=== PATIENT | female | born 1930 | race Caucasian/White ===

== ENCOUNTER 2017-05-09 14:45 | Inpatient (IN) | payer OTHER ==
--- NOTE | 2017-05-09 16:43 | PDOC ---
History of Present Illness <Jessica Maloney - Last Filed: 05/09/17 18:02> - General History Source: Patient, Family Exam Limitations: Language Barrier - History of Present Illness Initial Comments: 05/09/17 16:42 Patient is an 87F with history of HTN, HLD, and hypothyroidism complaining of wound healing. She was fell and was cut on a chair on 02/14/17 in [place], where she received 50+ stitches for a wound. After three weeks, the stitches were removed at the hospital. The wound stitches did not hold together and the wound has been healing by secondary intention. The patient saw her primary care physician who sent her to the emergency department to be evaluated, with follow up already arranged for tomorrow. The patient endorses a small amount of yellow discharge. She denies fevers, chills, nausea, vomiting, redness and warmth around the wound. The leg hurts to walk on. She denies chest pain and palpitations. <Tremaine Delgado - Last Filed: 05/09/17 18:46> - General Chief Complaint: Wound Stated Complaint: LEG PAIN/ REOPENED WOUND (PCP SENT) Time Seen by Provider: 05/09/17 16:17 Past History <Jessica Maloney - Last Filed: 05/09/17 18:02> - Past Medical History Cardiac Disorders: Yes (ANGINA) HTN: Yes Hypercholesterolemia: Yes Thyroid Disease: Yes - Surgical History Appendectomy: Yes Cardiac Surgery: Yes (CATH, NEG) - Psycho/Social/Smoking Cessation Hx Anxiety: No Suicidal Ideation: No Smoking Status: Yes Smoking History: Never smoked Have you smoked in the past 12 months: No Number of Cigarettes Smoked Daily: 0 If you are a former smoker, when did you quit?: 20 yrs Information on smoking cessation initiated: No Hx Alcohol Use: No Drug/Substance Use Hx: No Substance Use Type: None <Tremaine Delgado - Last Filed: 05/09/17 18:46> - Past Medical History Allergies/Adverse Reactions: Allergies Allergy/AdvReac Type Severity Reaction Status Date / Time No Known Allergies Allergy Verified 05/09/17 15:13 Home Medications: Ambulatory Orders Carvedilol [Coreg -] 3.125 mg PO BID #28 tablet 06/03/13 Hydrochlorothiazide 25 mg PO DAILY #14 tablet 06/03/13 Levothyroxine [Synthroid -] 25 mcg PO DAILY #14 tablet 06/03/13 Lisinopril [Prinivil] 40 mg PO DAILY #14 tablet 06/03/13 Simvastatin [Zocor -] 40 mg PO HS #14 tablet 06/03/13 Amlodipine Besylate 5 mg PO DAILY 04/04/16 Calcium 600 mg PO DAILY 04/04/16 Nitrostat 0.4 mg PO [id number] PRN 04/04/16 Ranitidine 150 mg PO DAILY 04/04/16 Vitamin D 50,000 units PO WEEKLY 04/04/16 Review of Systems - Review of Systems Constitutional: No: Chills, Fever HEENTM: No: Recent change in vision Respiratory: Yes: Shortness of Breath (for past two days). No: SOB at Rest Cardiac (ROS): No: Chest Pain, Palpitations, Syncope ABD/GI: Yes: Constipated (last bowel movement 3 days ago). No: Diarrhea, Nausea , Vomiting, Tarry Stools : No: Dysuria Musculoskeletal: Yes: Back Pain (chronic) Integumentary: Yes: Bruising (bruise on left arm due to minor trauma) Neurological: Yes: Headache <Tremaine Delgado - Last Filed: 05/09/17 18:46> *Physical Exam - Vital Signs Last Vital Signs Temp Pulse Resp BP Pulse Ox 98.5 F 68 18 133/72 96 05/09/17 15:10 05/09/17 15:10 05/09/17 15:10 05/09/17 15:10 05/09/17 15:10 <Jessica Maloney - Last Filed: 05/09/17 18:02> - Vital Signs Last Vital Signs Temp Pulse Resp BP Pulse Ox 98.5 F 68 18 133/72 96 05/09/17 15:10 05/09/17 15:10 05/09/17 15:10 05/09/17 15:10 05/09/17 15:10 - Physical Exam Comments: 05/09/17 16:53 Gen: Well-appearing elderly woman, no acute distress Right lex4cm wound healing by secondary intention with small amount of yellow watery drainage. Erythematous, tender to touch, swollen. Left leg: Pitting edema on left leg to knee. Nontender. Cooler than right leg. CV: Regular rate and rhythm Lungs: Clear to auscultation bilaterally, normal work of breathing Abd: Soft, nontender, normal bowel sounds Neuro: Alert and oriented, no focal neuro deficits. <Tremaine Delgado - Last Filed: 05/09/17 18:46> ED Treatment Course - LABORATORY CBC & Chemistry Diagram: 05/09/17 16:58 - ADDITIONAL ORDERS Additional order review: 05/09/17 16:58 RBC 3.98 MCV 88.0 MCHC 32.1 RDW 16.3 H D MPV 8.8 Neutrophils % 54.9 Lymphocytes % 35.0 Monocytes % 8.7 Eosinophils % 0.8 Basophils % 0.6 - RADIOLOGY Radiology Studies Ordered: Category Date Time Status CHEST PA & LAT [RAD] Stat Radiology 05/09/17 17:05 Ordered LEG TIB/FIB-RIGHT [RAD] Stat Radiology 05/09/17 17:04 Ordered <Jessica Maloney - Last Filed: 05/09/17 18:02> - LABORATORY CBC & Chemistry Diagram: 05/09/17 16:58 05/09/17 16:58 <Tremaine Delgado - Last Filed: 05/09/17 18:46> Medical Decision Making - Medical Decision Making 05/09/17 17:08 87F with PMH of HTN, HLD, Hypothyroidism here with a complaint of a wound. Vital signs stable and normal. Wound appears infected with possible bone involvement. Will send ESR, CRP, CBC and CMP. Will also do x-ray of leg. 05/09/17 18:41 CBC shows no white count. CRP elevated to 0.6. <Tremaine Delgado - Last Filed: 05/09/17 18:46> *DC/Admit/Observation/Transfer <Jessica Maloney - Last Filed: 05/09/17 18:02> <Tremaine Delgado - Last Filed: 05/09/17 18:46> Diagnosis at time of Disposition: Cellulitis, Right leg swelling - Discharge Dispostion Condition at time of disposition: Guarded - Referrals Referrals: Julianne Angeles [Primary Care Provider] -
[2017-05-09] MEDS ORDERED: VANCOMYCIN 1,000 MG in DEXTROSE 5%-WATER - 250 ML IVPB ONE (17:04)
--- NOTE | 2017-05-09 17:09 | PDOC ---
Attending Attestation - Resident Resident Name: NamTremaine garg - HPI HPI: 05/09/17 17:06 PT HAS AN INFECTED OPEN WOUND ON HER RIGHT YEH THAT LOOKS WORSE; LEG IS HOT AND SWOLLEN COMPARED TO THE LEFT SIDE. SHE MAY HAVE OSTEOMYELITIS AND SHE WAS SENT FROM HER PMD KYLE REYES FOR ADMISSION - Physicial Exam PE: 05/09/17 17:07 RIGHT LEG HOT AND OPEN GRANULATING WOUND 3CM X 8 CM ON THE YEH. PT HAS PITTING EDEMA IN THE LL LEG OTHER TURCIOS EXAM ABOVE - Medical Decision Making 05/09/17 17:08 CELLULITIS; R/O OSTEO ADMIT TO THE HOSPITALIST
[2017-05-09 17:24] LABS: BASOPHIL 0.6 % (0-2.0); EOSINOPHIL 0.8 % (0-4.5); MCH 28.2 pg (25.7-33.7); MCHC 32.1 g/dl (32.0-36.0); MEAN PLT VOLUME 8.8 fl (7.5-11.1); NEUTROPHILS 54.9 % (42.8-82.8); PLATELET COUNT 258 K/MM3 (134-434); RDW 16.3 % (11.6-15.6); WHITE BLOOD COUNT 6.2 K/mm3 (4.0-10.0)
[2017-05-09] MEDS ORDERED: VANCOMYCIN 1 GRAM (PRE-DOCKED) 250 ML IVPB ONE (18:09)
[2017-05-09 18:59] LABS: CREATININE 0.8 mg/dL (0.55-1.02); GLUCOSE,RANDOM 79 mg/dL (74-106)
[2017-05-09 19:00] LABS: ALBUMIN 3.1 g/dl (3.4-5.0); ALK PHOS 76 U/L (45-117); ANION GAP 6 (8-16); BILIRUBIN,TOTAL 0.2 mg/dL (0.2-1.0); CALCIUM 8.5 mg/dL (8.5-10.1); CO2 32 mmol/L (21-32); SGOT/AST 24 U/L (15-37); SGPT/ALT 19 U/L (12-78); TOT PROT 6.9 g/dl (6.4-8.2)
--- NOTE | 2017-05-09 20:01 | HP ---
CHIEF COMPLAINT: Right leg swelling, redness, and discharge PCP: Not on Staff HISTORY OF PRESENT ILLNESS: This is a 87 y/o female who presents to the ED with a RLE wound with increased swelling, erythema, and yellow drainage worse today. Patient is Kyrgyz speaking , [employer] [facility] [employer] line used #[id number]. Patient reports the wound resulted from a fall back in January resulting in +50 sutures. Patient reports being on ABX for 1 month , but she could not recall the name and that the wound never healed. Patient reports seeing her PMD today and was sent in for admission for Cellulitis. Patient denies fever, chills, SOB, CP, AP, N/V/D, constipation, dysuria. ER course was notable for: (1) ESR 59 (2) CRP 0.6 (3) Xray R- Tib/Fib-no acute bony abnormalities are seen. No radiopaque foreign body is seen. No evidence of soft tissue emphysematous changes Recent Travel: None PAST MEDICAL HISTORY: HTN HLD Hypothyroid OA GERD PAST SURGICAL HISTORY: Right breast biopsy (pathology reported cyst) Appendectomy Social History: Smoking: Former Alcohol: Denies Drugs: Denies Lives in [place], resides with daughter when in [place] Family History: No known health conditions Allergies No Known Allergies Allergy (Verified 05/09/17 15:13) HOME MEDICATIONS: Home Medications Medication Instructions Recorded Unobtainable [Unobtainable] 05/09/17 REVIEW OF SYSTEMS CONSTITUTIONAL: Absent: fever, chills, diaphoresis, generalized weakness, malaise, loss of appetite, weight change HEENT: Absent: rhinorrhea, nasal congestion, throat pain, throat swelling, difficulty swallowing, mouth swelling, ear pain, eye pain, visual changes CARDIOVASCULAR: Absent: chest pain, syncope, palpitations, irregular heart rate, lightheadedness , peripheral edema RESPIRATORY: Absent: cough, shortness of breath, dyspnea with exertion, orthopnea, wheezing, stridor, hemoptysis GASTROINTESTINAL: Absent: abdominal pain, abdominal distension, nausea, vomiting, diarrhea, constipation, melena, hematochezia GENITOURINARY: Absent: dysuria, frequency, urgency, hesitancy, hematuria, flank pain, genital pain MUSCULOSKELETAL: joint swelling Absent: myalgia, arthralgia, back pain, neck pain SKIN: wound/abscess to RLE Absent: rash, itching, pallor HEMATOLOGIC/IMMUNOLOGIC: Absent: easy bleeding, easy bruising, lymphadenopathy, frequent infections ENDOCRINE: Absent: unexplained weight gain, unexplained weight loss, heat intolerance, cold intolerance NEUROLOGIC: Absent: headache, focal weakness or paresthesias, dizziness, unsteady gait, seizure, mental status changes, bladder or bowel incontinence PSYCHIATRIC: Absent: anxiety, depression, suicidal or homicidal ideation, hallucinations. PHYSICAL EXAMINATION Vital Signs - 24 hr 05/09/17 05/09/17 15:10 19:58 Temperature 98.5 F 98 F Pulse Rate 68 Pulse Rate [ 61 Apical] Respiratory 18 18 Rate Blood Pressure 133/72 Blood Pressure 150/77 [Left Arm] O2 Sat by Pulse 96 95 Oximetry (%) GENERAL: Obese, awake, alert, and fully oriented, in no acute distress. HEAD: Normal with no signs of trauma. EYES: Pupils equal, round and reactive to light, extraocular movements intact, sclera anicteric, conjunctiva clear. No lid lag. EARS, NOSE, THROAT: Ears normal, nares patent, oropharynx clear without exudates. Moist mucous membranes. NECK: Normal range of motion, supple without lymphadenopathy, JVD, or masses. LUNGS: Breath sounds equal, clear to auscultation bilaterally. No wheezes, and no crackles. No accessory muscle use. HEART: Regular rate and rhythm, normal S1 and S2 without murmur, rub or gallop. ABDOMEN: Soft, nontender, not distended, normoactive bowel sounds, no guarding, no rebound, no masses. No hepatomegaly or splenomegaly. MUSCULOSKELETAL: Normal range of motion at all joints. No bony deformities or tenderness. No CVA tenderness. UPPER EXTREMITIES: 2+ pulses, warm, well-perfused. No cyanosis. No clubbing. No peripheral edema. LOWER EXTREMITIES: 2+ pulses, warm, well-perfused. No left calf tenderness.+ Right calf tenderness + 2 R>L peripheral edema. NEUROLOGICAL: Cranial nerves II-XII intact. Normal speech. Gait not observed. PSYCHIATRIC: Cooperative. Good eye contact. Appropriate mood and affect. SKIN: Warm, dry, normal turgor, no rashes. normal capillary refill. + erythematous, large open wound with irregular borders, +yellow drainage noted to anterior RLE Laboratory Results - last 24 hr 05/09/17 05/09/17 05/09/17 16:51 16:51 16:58 WBC 6.2 RBC 3.98 Hgb 11.3 Hct 35.0 MCV 88.0 MCH 28.2 MCHC 32.1 RDW 16.3 H D Plt Count 258 D MPV 8.8 Neutrophils % 54.9 Lymphocytes % 35.0 Monocytes % 8.7 Eosinophils % 0.8 Basophils % 0.6 ESR 59 H Sodium Potassium Chloride Carbon Dioxide Anion Gap BUN Creatinine Creat Clearance w eGFR Random Glucose Calcium Total Bilirubin AST ALT Alkaline Phosphatase C-Reactive Protein 0.6 H Total Protein Albumin 05/09/17 16:58 WBC RBC Hgb Hct MCV MCH MCHC RDW Plt Count MPV Neutrophils % Lymphocytes % Monocytes % Eosinophils % Basophils % ESR Sodium 141 Potassium 4.3 Chloride 103 Carbon Dioxide 32 Anion Gap 6 L BUN 12 D Creatinine 0.8 Creat Clearance w eGFR > 60 Random Glucose 79 Calcium 8.5 Total Bilirubin 0.2 D AST 24 ALT 19 Alkaline Phosphatase 76 C-Reactive Protein Total Protein 6.9 Albumin 3.1 L ASSESSMENT/PLAN: This is a 87 y/o female with a PMHx of: HTN, HLD, Hypothyroid, Angina. Presents to the ED with increased redness, swelling and yellow drainage from a RLE wound. Admitted for Cellulitis/Abscess of RLE for further evaluation of their emergent condition. Problems: 1. Cellulitis/Abscess of R- lower extremity 2. HTN 3. HLD 4. Hypothyroid 5. Angina Plan: - Likely secondary to Failed Outpatient Therapy - Continue Vancomycin - Monitor trough - Appreciate ID Consult - Wound Care Nurse- dressing changes - Will do Doppler RLE r/o DVT - Wells Score 3 - Duplex RLE- neg DVT - Elevate extremity - Monitor CBC, BMP - Monitor vitals - Continue home meds- verified with patient's granddaughter through [employer] line #[id number] - TSH in am - EKG reviewed - DVT Prophylaxis- OOB, Heparin SQ - PPI Prophylaxis- continue ranitidine - Low Na Diet Code Status- Full Code Dispo: Requires Inpatient Care Problem List - Problem (1) Cellulitis Code(s): L03.90 - CELLULITIS, UNSPECIFIED (2) Right leg swelling Code(s): M79.89 - OTHER SPECIFIED SOFT TISSUE DISORDERS (3) Dyslipidemia Code(s): E78.5 - HYPERLIPIDEMIA, UNSPECIFIED (4) HTN (hypertension) Code(s): I10 - ESSENTIAL (PRIMARY) HYPERTENSION (5) Hypothyroid Code(s): E03.9 - HYPOTHYROIDISM, UNSPECIFIED (6) Cardiac angina Code(s): I20.9 - ANGINA PECTORIS, UNSPECIFIED (7) DVT prophylaxis Code(s): SKQ4441 - Visit type - Emergency Visit Emergency Visit: Yes ED Registration Date: 05/09/17 Care time: The patient presented to the Emergency Department on the above date and was hospitalized for further evaluation of their emergent condition. - New Patient This patient is new to me today: Yes Date on this admission: 05/09/17 - Critical Care Critical Care patient: No
[2017-05-09] MEDS ORDERED: OXYCODONE/APAP 5/325MG COMBO TABLET PO PRN (21:58)
[2017-05-09] MEDS ORDERED: ACETAMINOPHEN 325 MG TABLET (FP) PO PRN (22:14)
[2017-05-09] MEDS ORDERED: oxyCODONE HCL 5 MG TABLET PO PRN (22:14)
[2017-05-10 04:00] VITALS: BMI 34.0
[2017-05-10] MEDS ORDERED: VANCOMYCIN 1 GRAM (PRE-DOCKED) 1,000 MG/250 ML BAG IVPB ONE (06:00)
[2017-05-10] MEDS: LEVOTHYROXINE NA 25 MCG TABLET (FP) PO SCH (07:01)
[2017-05-10 07:41] LABS: BASOPHIL 0.4 % (0-2.0); MCH 28.9 pg (25.7-33.7); MCHC 32.9 g/dl (32.0-36.0); MEAN CELL VOLUME 87.8 fl (80-96); MEAN PLT VOLUME 8.7 fl (7.5-11.1); NEUTROPHILS 58.9 % (42.8-82.8); PLATELET COUNT 205 K/MM3 (134-434); RDW 16.9 % (11.6-15.6)
[2017-05-10 08:14] LABS: ANION GAP 9 (8-16); CALCIUM 8.2 mg/dL (8.5-10.1); CO2 31 mmol/L (21-32); CREATININE 0.6 mg/dL (0.55-1.02); GLUCOSE,RANDOM 84 mg/dL (74-106)
[2017-05-10] MEDS: CARVEDILOL 3.125 MG TABLET (FP) PO SCH ×2 (09:58→21:24)
[2017-05-10] MEDS: amLODIPine BESYLATE 5 MG TABLET (FP) PO SCH (09:59)
[2017-05-10] MEDS: HYDROCHLOROTHIAZIDE 25 MG TABLET (FP) PO SCH (09:59)
[2017-05-10] MEDS: HEPARIN NA (PORCINE) 5,000 UNITS/ML 1ML VIAL SQ SCH ×2 (09:59→21:25)
[2017-05-10] MEDS: LOSARTAN POTASSIUM 50 MG TABLET (FP) PO SCH (09:59)
[2017-05-10] MEDS: RANITIDINE HCL 150 MG TABLET (FP) PO SCH (09:59)
[2017-05-10] MEDS ORDERED: PNEUMOC 13-VAL CONJ-DIP CRM/PF 0.5 ML DISP.SYRIN IM ONE (10:00)
[2017-05-10] MEDS ORDERED: VANCOMYCIN 1,000 MG in DEXTROSE 5%-WATER - 250 ML IVPB SCH (10:00)
[2017-05-10] MEDS ORDERED: CARVEDILOL 3.125 MG TABLET (FP) PO SCH (10:00)
--- NOTE | 2017-05-10 10:41 | EKG ---
Test Reason : Blood Pressure : / mmHG Vent. Rate : 065 BPM Atrial Rate : 065 BPM P-R Int : 144 ms QRS Dur : 090 ms QT Int : 452 ms P-R-T Axes : 061 -43 030 degrees QTc Int : 470 ms POOR DATA QUALITY, INTERPRETATION MAY BE ADVERSELY AFFECTED NORMAL SINUS RHYTHM LEFT AXIS DEVIATION LOW VOLTAGE QRS RSR' OR QR PATTERN IN V1 SUGGESTS RIGHT VENTRICULAR CONDUCTION DELAY ABNORMAL ECG WHEN COMPARED WITH ECG OF 08-JAN-2016 11:14, NONSPECIFIC T WAVE ABNORMALITY HAS REPLACED INVERTED T WAVES IN LATERAL LEADS Confirmed by EZEKIEL DELANEY MD ([id number]) on 05/10/2017 10:41:35 AM Referred By: Confirmed By:EZEKIEL DELANEY MD
--- NOTE | 2017-05-10 11:52 | PN ---
Physical Exam: SUBJECTIVE: Patient seen and examined. Feels her pain has improved after initiation of antibiotics. OBJECTIVE: Vital Signs Period Temp Pulse Resp BP Sys/Hall Pulse Ox Last 24 Hr 98.2 F-98.2 F 58-66 14-18 137-158/55-72 90-96 GENERAL: The patient is awake, alert, and fully oriented, in no acute distress. HEAD: Normal with no signs of trauma. EYES: PERRL, extraocular movements intact, sclera anicteric, conjunctiva clear. No ptosis. ENT: Ears normal, nares patent, oropharynx clear without exudates, moist mucous membranes. NECK: Trachea midline, full range of motion, supple. LUNGS: Breath sounds equal, clear to auscultation bilaterally, no wheezes, no crackles, no accessory muscle use. HEART: Regular rate and rhythm, S1, S2 without murmur, rub or gallop. ABDOMEN: Soft, nontender, nondistended, normoactive bowel sounds, no guarding, no rebound, no hepatosplenomegaly, no masses. EXTREMITIES: Warm, well-perfused. Right DP/PT pulses 1+. NEUROLOGICAL: Cranial nerves II through XII grossly intact. Normal speech, gait not observed. PSYCH: Normal mood, normal affect. SKIN: Large, irregular wound over right tibia with granulation tissue and some mild surrounding erythema and pitting edema. Laboratory Results - last 24 hr 05/10/17 05/10/17 06:15 06:15 WBC 6.0 RBC 4.03 Hgb 11.6 Hct 35.4 MCV 87.8 MCH 28.9 MCHC 32.9 RDW 16.9 H Plt Count 205 D MPV 8.7 Neutrophils % 58.9 Lymphocytes % 29.8 Monocytes % 9.9 Eosinophils % 1.0 Basophils % 0.4 Sodium 143 Potassium 3.6 Chloride 103 Carbon Dioxide 31 Anion Gap 9 BUN 8 D Creatinine 0.6 D Random Glucose 84 Calcium 8.2 L Active Medications Generic Name Dose Route Start Last Admin Trade Name Freq PRN Reason Stop Dose Admin Acetaminophen 650 mg 05/09/17 22:14 Tylenol - PO Q6H PRN PAIN Amlodipine Besylate 5 mg 05/10/17 10:00 05/10/17 09:59 Norvasc - PO 5 mg DAILY JODI Administration Atorvastatin Calcium 20 mg 05/10/17 22:00 Lipitor - PO HS JODI Carvedilol 3.125 mg 05/10/17 10:00 05/10/17 09:58 Coreg - PO 3.125 mg BID JODI Administration Heparin Sodium (Porcine) 5,000 unit 05/10/17 10:00 05/10/17 09:59 Heparin - SQ 5,000 unit BID JODI Administration Hydrochlorothiazide 25 mg 05/10/17 10:00 05/10/17 09:59 Hctz - PO 25 mg DAILY JODI Administration Vancomycin HCl 1,000 mg/ 250 mls @ 200 mls/hr 05/10/17 10:00 Dextrose IVPB Q12H JODI Levothyroxine Sodium 25 mcg 05/10/17 07:00 05/10/17 07:01 Synthroid - PO 25 mcg DAILY@0700 JODI Administration Losartan Potassium 50 mg 05/10/17 10:00 05/10/17 09:59 Cozaar - PO 50 mg DAILY JODI Administration Oxycodone HCl 10 mg 05/09/17 22:14 Roxicodone - PO Q6H PRN PAIN LEVEL 6-10 Ranitidine HCl 150 mg 05/10/17 10:00 05/10/17 09:59 Zantac - PO 150 mg DAILY JODI Administration ASSESSMENT/PLAN: 87 year old female with non-healing right tibial wound s/p fall on 02/14; initially given 50+ sutures and antibiotics per her report. 1. Non-healing, ?infected wound -Failed out patient therapy, continue Vancomycin, add Cefazolin -Xray demonstrated no soft tissue air -MRI to r/o osteomyelitis -Wound care nurse, vascular consultation for further recommendations 2. HTN -BPs slightly above goal -Continue home Norvasc/Cozaar/HCTZ/Coreg and monitor 3. HLD -Continue Atorvastatin 4. Hypothyroidism -Continue Synthroid 5. CAD -No active issues 6. F/E/N -Sodium-controlled diet DISPO: Requires inpatient services. Visit type - Emergency Visit Emergency Visit: Yes ED Registration Date: 05/09/17 Care time: The patient presented to the Emergency Department on the above date and was hospitalized for further evaluation of their emergent condition. - New Patient This patient is new to me today: Yes Date on this admission: 05/14/17 - Critical Care Critical Care patient: No - Discharge Referral Referred to [facility] Med P.C.: No
[2017-05-10] MEDS ORDERED: CEFAZOLIN (PRE-DOCKED) 50 ML IVPB SCH (12:30)
--- NOTE | 2017-05-10 14:28 | CONSULT ---
Consult Consult Specialty:: infectious diseases Reason for Consultation:: non healing ulcer - History of Present Illness History of Present Illness: 87 y/o female whoadmitted with a RLE wound with increased swelling, erythema, and yellow drainage which has not been improving . Patient reports the wound resulted from a fall back in January resulting in multiple suthures with prolonged course of abx According to the aptient the wound never healed Send by her pmd for admission for cellulitits patient has no other complaints no other issues - History Source History Provided By: Patient, Medical Record Limitations to Obtaining History: Language Barrier - Alcohol/Substance Use Hx Alcohol Use: No History of Substance Use: reports: None - Smoking History Smoking history: Former smoker Have you smoked in the past 12 months: No Aproximately how many cigarettes per day: 40 If you are a former smoker, when did you quit?: 40 yrs - Social History History of Recent Travel: Yes (traveled from [place]) Home Medications - Allergies Allergies/Adverse Reactions: Allergies Allergy/AdvReac Type Severity Reaction Status Date / Time No Known Allergies Allergy Verified 05/09/17 15:13 - Home Medications Home Medications: Ambulatory Orders Unobtainable [Unobtainable] 05/09/17 Review of Systems - Review of Systems Constitutional: reports: No Symptoms Eyes: reports: No Symptoms HENT: reports: No Symptoms Neck: reports: No Symptoms Cardiovascular: reports: No Symptoms Respiratory: reports: No Symptoms Gastrointestinal: reports: No Symptoms Genitourinary: reports: No Symptoms Musculoskeletal: reports: Muscle Pain, Other Integumentary: reports: Wound Neurological: reports: No Symptoms Endocrine: reports: No Symptoms Hematology/Lymphatic: reports: No Symptoms Psychiatric: reports: No Symptoms Physical Exam Vital Signs: Vital Signs Temperature 98.2 F 05/10/17 05:00 Pulse Rate 64 05/10/17 05:00 Respiratory Rate 18 05/10/17 05:00 Blood Pressure 145/71 05/10/17 05:00 O2 Sat by Pulse Oximetry (%) 90 L 05/10/17 00:00 Constitutional: Yes: Well Nourished, No Distress, Calm Eyes: Yes: Conjunctiva Clear Neck: Yes: Supple Cardiovascular: Yes: Regular Rate and Rhythm Respiratory: Yes: Regular, CTA Bilaterally Gastrointestinal: Yes: Normal Bowel Sounds, Soft Musculoskeletal: Yes: Other Extremities: Yes: WNL Edema: LLE: 1+, RLE: 1+ Integumentary: Yes: Other (non healing ulcer on the rt lateral leg , large open wound with irregular borders, surrounding mild erythema,) Wound/Incision: Yes: Clean/Dry, Other Neurological: Yes: Alert Psychiatric: Yes: Alert Labs: CBC, BMP 05/10/17 06:15 05/10/17 06:15 Imaging - Results Chest X-ray: Report Reviewed, Image Reviewed X-ray: Report Reviewed, Image Reviewed Assessment/Plan 1. Cellulitis/Abscess of R- lower extremity 2. HTN 3. HLD 4. Hypothyroid 5. Angina plan changed abx to unasyn await for all cx report to be back
[2017-05-10] MEDS: AMPICILLIN NA/SULBACTAM NA 3 GM in SODIUM CHLORIDE 100 ML IVPB SCH (21:24)
[2017-05-10] MEDS: ATORVASTATIN CA 20 MG TABLET (FP) PO SCH (21:26)
[2017-05-11] MEDS: AMPICILLIN NA/SULBACTAM NA 3 GM in SODIUM CHLORIDE 100 ML IVPB SCH ×3 (01:51→17:29)
[2017-05-11] MEDS: LEVOTHYROXINE NA 25 MCG TABLET (FP) PO SCH (06:09)
[2017-05-11 06:58] LABS: BASOPHIL 0.3 % (0-2.0); EOSINOPHIL 1.4 % (0-4.5); MCH 28.7 pg (25.7-33.7); MCHC 32.9 g/dl (32.0-36.0); MEAN CELL VOLUME 87.3 fl (80-96); MEAN PLT VOLUME 8.8 fl (7.5-11.1); NEUTROPHILS 58.6 % (42.8-82.8); PLATELET COUNT 220 K/MM3 (134-434); RDW 16.6 % (11.6-15.6); WHITE BLOOD COUNT 5.9 K/mm3 (4.0-10.0)
[2017-05-11 07:09] LABS: ANION GAP 7 (8-16); CALCIUM 8.7 mg/dL (8.5-10.1); CO2 36 mmol/L (21-32); CREATININE 0.7 mg/dL (0.55-1.02); GLUCOSE,RANDOM 86 mg/dL (74-106)
[2017-05-11] MEDS ORDERED: PT OWN MED DRAWER 7, Y5N ONE ×3 (09:16→17:11)
[2017-05-11] MEDS: HYDROCHLOROTHIAZIDE 25 MG TABLET (FP) PO SCH (09:18)
[2017-05-11] MEDS: CARVEDILOL 3.125 MG TABLET (FP) PO SCH ×2 (09:18→22:12)
[2017-05-11] MEDS: HEPARIN NA (PORCINE) 5,000 UNITS/ML 1ML VIAL SQ SCH ×2 (09:18→22:13)
[2017-05-11] MEDS: RANITIDINE HCL 150 MG TABLET (FP) PO SCH (09:18)
[2017-05-11] MEDS: LOSARTAN POTASSIUM 50 MG TABLET (FP) PO SCH (09:19)
--- NOTE | 2017-05-11 09:34 | CONSULT ---
Consult - Alcohol/Substance Use Hx Alcohol Use: No History of Substance Use: reports: None - Smoking History Smoking history: Former smoker Have you smoked in the past 12 months: No Aproximately how many cigarettes per day: 40 If you are a former smoker, when did you quit?: 40 yrs - Social History History of Recent Travel: Yes (traveled from [place]) Home Medications - Allergies Allergies/Adverse Reactions: Allergies Allergy/AdvReac Type Severity Reaction Status Date / Time No Known Allergies Allergy Verified 05/09/17 15:13 - Home Medications Home Medications: Ambulatory Orders Unobtainable [Unobtainable] 05/09/17 Physical Exam Vital Signs: Vital Signs Temperature 98.7 F 05/11/17 06:00 Pulse Rate 70 05/11/17 06:00 Respiratory Rate 18 05/11/17 06:00 Blood Pressure 146/74 05/11/17 06:00 O2 Sat by Pulse Oximetry (%) 98 05/11/17 08:27 Labs: CBC, BMP 05/11/17 05:45 05/11/17 05:45 Assessment/Plan VAscular Surgery Patient is an 87F with history of HTN, HLD, and hypothyroidism complaining of wound healing. She was fell and was cut on a chair on 02/14/17 in [place], where she received 50+ stitches for a wound. After three weeks, the stitches were removed at the hospital. The wound stitches did not hold together and the wound has been healing by secondary intention. The patient saw her primary care physician who sent her to the emergency department to be evaluated, with follow up already arranged for tomorrow. The patient endorses a small amount of yellow discharge. She denies fevers, chills, nausea, vomiting, redness and warmth around the wound. The leg hurts to walk on. She denies chest pain and palpitations. <Tremaine Delgado - Last Filed: 05/09/17 18:46> - General Chief Complaint: Wound Stated Complaint: LEG PAIN/ REOPENED WOUND (PCP SENT) Time Seen by Provider: 05/09/17 16:17 Past History <Jessica Maloney - Last Filed: 05/09/17 18:02> - Past Medical History Cardiac Disorders: Yes (ANGINA) HTN: Yes Hypercholesterolemia: Yes Thyroid Disease: Yes - Surgical History Appendectomy: Yes Cardiac Surgery: Yes (CATH, NEG) - Psycho/Social/Smoking Cessation Hx Anxiety: No Suicidal Ideation: No Smoking Status: Yes Smoking History: Never smoked Have you smoked in the past 12 months: No Number of Cigarettes Smoked Daily: 0 If you are a former smoker, when did you quit?: 20 yrs Information on smoking cessation initiated: No Hx Alcohol Use: No Drug/Substance Use Hx: No Substance Use Type: None <Tremaine Delgado - Last Filed: 05/09/17 18:46> - Past Medical History Allergies/Adverse Reactions: Allergies Allergy/AdvReac Type Severity Reaction Status Date / Time No Known Allergies Allergy Verified 05/09/17 15:13 Home Medications: Ambulatory Orders Carvedilol [Coreg -] 3.125 mg PO BID #28 tablet 06/03/13 Hydrochlorothiazide 25 mg PO DAILY #14 tablet 06/03/13 Levothyroxine [Synthroid -] 25 mcg PO DAILY #14 tablet 06/03/13 Lisinopril [Prinivil] 40 mg PO DAILY #14 tablet 06/03/13 Simvastatin [Zocor -] 40 mg PO HS #14 tablet 06/03/13 Amlodipine Besylate 5 mg PO DAILY 04/04/16 Calcium 600 mg PO DAILY 04/04/16 Nitrostat 0.4 mg PO [id number] PRN 04/04/16 Ranitidine 150 mg PO DAILY 04/04/16 Vitamin D 50,000 units PO WEEKLY 04/04/16 PE Head - NC/AT Lung - CTA Heart - RRR abd - soft,nd,nt ext - Right wetzel wound. Clean , pink, granulation. Palpable DP pulse. A/P S/P trauma to right wetzel, now with wound open. 1. Santyl to wound daily with compression with mariah. 2. PLease have pt follow up in wound care clinic upon DC. please make pt a appt prior to dc -- [phone]. Leif Issa DO
[2017-05-11] MEDS: COLLAGENASE CLOSTRIDIUM HIST. 30 GRAMS TUBE TP SCH (11:00)
[2017-05-11] MEDS: amLODIPine BESYLATE 5 MG TABLET (FP) PO SCH (13:53)
--- NOTE | 2017-05-11 16:55 | PN ---
Progress Note, Physician History of Present Illness: improving wound looks better - Current Medication List Current Medications: Active Medications Acetaminophen (Tylenol -) 650 mg PO Q6H PRN PRN Reason: PAIN Amlodipine Besylate (Norvasc -) 5 mg PO DAILY [facility] Last Admin: 05/11/17 13:53 Dose: 5 mg Atorvastatin Calcium (Lipitor -) 20 mg PO HS [facility] Last Admin: 05/10/17 21:26 Dose: 20 mg Carvedilol (Coreg -) 3.125 mg PO BID [facility] Last Admin: 05/11/17 09:18 Dose: 3.125 mg Collagenase (Santyl -) 1 applic TP DAILY [facility] Last Admin: 05/11/17 11:00 Dose: 1 applic Heparin Sodium (Porcine) (Heparin -) 5,000 unit SQ BID [facility] Last Admin: 05/11/17 09:18 Dose: 5,000 unit Hydrochlorothiazide (Hctz -) 25 mg PO DAILY [facility] Last Admin: 05/11/17 09:18 Dose: 25 mg Ampicillin Sodium/Sulbactam (Sodium 3 gm/ Sodium Chloride) 100 mls @ 200 mls/ hr IVPB Q8H-IV [facility] Last Admin: 05/11/17 09:19 Dose: 200 mls/hr Levothyroxine Sodium (Synthroid -) 25 mcg PO DAILY@0700 [facility] Last Admin: 05/11/17 06:09 Dose: 25 mcg Losartan Potassium (Cozaar -) 50 mg PO DAILY [facility] Last Admin: 05/11/17 09:19 Dose: 50 mg Oxycodone HCl (Roxicodone -) 10 mg PO Q6H PRN PRN Reason: PAIN LEVEL 6-10 Ranitidine HCl (Zantac -) 150 mg PO DAILY [facility] Last Admin: 05/11/17 09:18 Dose: 150 mg - Objective Vital Signs: Vital Signs Temperature 97.9 F 05/11/17 14:39 Pulse Rate 64 05/11/17 14:39 Respiratory Rate 18 05/11/17 14:39 Blood Pressure 138/68 05/11/17 14:39 O2 Sat by Pulse Oximetry (%) 98 05/11/17 08:27 Constitutional: Yes: No Distress, Calm Cardiovascular: Yes: Regular Rate and Rhythm Respiratory: Yes: Regular, CTA Bilaterally Gastrointestinal: Yes: Normal Bowel Sounds, Soft Musculoskeletal: Yes: Other Extremities: Yes: Other Neurological: Yes: Alert, Oriented Psychiatric: Yes: Alert, Oriented Labs: CBC, BMP 05/11/17 05:45 05/11/17 05:45 Assessment/Plan 1. Cellulitis/Abscess of R- lower extremity 2. HTN 3. HLD 4. Hypothyroid 5. Angina plan continue abx vascular evaluated the patient
--- NOTE | 2017-05-11 17:15 | PN ---
Physical Exam: SUBJECTIVE: Patient seen and examined at bedside. OBJECTIVE: Vital Signs Period Temp Pulse Resp BP Sys/Hall Pulse Ox Last 24 Hr 97.9 F-98.7 F 59-70 16-20 118-146/55-88 98 GENERAL: The patient is awake, alert, and fully oriented, in no acute distress. HEAD: Normal with no signs of trauma. EYES: PERRL, extraocular movements intact, sclera anicteric, conjunctiva clear. No ptosis. ENT: Ears normal, nares patent, oropharynx clear without exudates, moist mucous membranes. NECK: Trachea midline, full range of motion, supple. LUNGS: Breath sounds equal, clear to auscultation bilaterally, no wheezes, no crackles, no accessory muscle use. HEART: Regular rate and rhythm, S1, S2 without murmur, rub or gallop. ABDOMEN: Soft, nontender, nondistended, normoactive bowel sounds, no guarding, no rebound, no hepatosplenomegaly, no masses. EXTREMITIES: Warm, well-perfused. Right DP/PT pulses 1+. NEUROLOGICAL: Cranial nerves II through XII grossly intact. Normal speech, gait not observed. PSYCH: Normal mood, normal affect. SKIN: Large, irregular wound over right tibia with slough Laboratory Results - last 24 hr 05/11/17 05/11/17 05:45 05:45 WBC 5.9 RBC 4.25 Hgb 12.2 Hct 37.1 MCV 87.3 MCH 28.7 MCHC 32.9 RDW 16.6 H Plt Count 220 MPV 8.8 Neutrophils % 58.6 Lymphocytes % 32.4 Monocytes % 7.3 Eosinophils % 1.4 Basophils % 0.3 Sodium 143 Potassium 3.8 Chloride 100 Carbon Dioxide 36 H Anion Gap 7 L BUN 9 Creatinine 0.7 Random Glucose 86 Calcium 8.7 Active Medications Generic Name Dose Route Start Last Admin Trade Name Freq PRN Reason Stop Dose Admin Acetaminophen 650 mg 05/09/17 22:14 Tylenol - PO Q6H PRN PAIN Amlodipine Besylate 5 mg 05/10/17 10:00 05/11/17 13:53 Norvasc - PO 5 mg DAILY JODI Administration Atorvastatin Calcium 20 mg 05/10/17 22:00 05/10/17 21:26 Lipitor - PO 20 mg HS JODI Administration Carvedilol 3.125 mg 05/10/17 10:00 05/11/17 09:18 Coreg - PO 3.125 mg BID JODI Administration Collagenase 1 applic 05/11/17 10:00 05/11/17 11:00 Santyl - TP 1 applic DAILY JODI Administration Heparin Sodium (Porcine) 5,000 unit 05/10/17 10:00 05/11/17 09:18 Heparin - SQ 5,000 unit BID JODI Administration Hydrochlorothiazide 25 mg 05/10/17 10:00 05/11/17 09:18 Hctz - PO 25 mg DAILY JODI Administration Ampicillin Sodium/Sulbactam 100 mls @ 200 mls/hr 05/10/17 18:00 05/11/17 09:19 Sodium 3 gm/ Sodium Chloride IVPB 200 mls/hr Q8H-IV JODI Administration Levothyroxine Sodium 25 mcg 05/10/17 07:00 05/11/17 06:09 Synthroid - PO 25 mcg DAILY@0700 JODI Administration Losartan Potassium 50 mg 05/10/17 10:00 05/11/17 09:19 Cozaar - PO 50 mg DAILY JODI Administration Oxycodone HCl 10 mg 05/09/17 22:14 Roxicodone - PO Q6H PRN PAIN LEVEL 6-10 Ranitidine HCl 150 mg 05/10/17 10:00 05/11/17 09:18 Zantac - PO 150 mg DAILY JODI Administration ASSESSMENT/PLAN 87 year old female with non-healing right tibial wound s/p fall on 02/14; initially given 50+ sutures and antibiotics per her report. 1. Non-healing RLE infected wound -slough in wound which indicates significant bioburden -continue unasyn -daily collagenase 2. HTN -BPs presently well-controlled -Continue home Norvasc/Cozaar/HCTZ/Coreg and monitor 3. HLD -Continue Atorvastatin 4. Hypothyroidism -Continue Synthroid 5. CAD -No active issues 6. F/E/N -Sodium-controlled diet DISPO: Requires inpatient services. Visit type - Emergency Visit Emergency Visit: Yes ED Registration Date: 05/09/17 Care time: The patient presented to the Emergency Department on the above date and was hospitalized for further evaluation of their emergent condition. - New Patient This patient is new to me today: Yes Date on this admission: 05/11/17 - Critical Care Critical Care patient: No
[2017-05-11] MEDS: ATORVASTATIN CA 20 MG TABLET (FP) PO SCH (22:12)
[2017-05-12] MEDS: AMPICILLIN NA/SULBACTAM NA 3 GM in SODIUM CHLORIDE 100 ML IVPB SCH ×3 (02:22→18:03)
[2017-05-12] MEDS: LEVOTHYROXINE NA 25 MCG TABLET (FP) PO SCH (06:57)
--- NOTE | 2017-05-12 08:34 | PN ---
Physical Exam: SUBJECTIVE: Patient seen and examined at bedside. Very little pain at wound site on left leg. OBJECTIVE: Vital Signs Period Temp Pulse Resp BP Sys/Hall Pulse Ox Last 24 Hr 97.9 F-98.5 F 56-68 16-18 118-138/58-88 GENERAL: The patient is awake, alert, and fully oriented, in no acute distress. HEAD: Normal with no signs of trauma. EYES: PERRL, extraocular movements intact, sclera anicteric, conjunctiva clear. No ptosis. ENT: Ears normal, nares patent, oropharynx clear without exudates, moist mucous membranes. NECK: Trachea midline, full range of motion, supple. LUNGS: Breath sounds equal, clear to auscultation bilaterally, no wheezes, no crackles, no accessory muscle use. HEART: Regular rate and rhythm, S1, S2 without murmur, rub or gallop. ABDOMEN: Soft, nontender, nondistended, normoactive bowel sounds, no guarding, no rebound, no hepatosplenomegaly, no masses. EXTREMITIES: Warm, well-perfused. Right DP/PT pulses 1+. NEUROLOGICAL: Cranial nerves II through XII grossly intact. Normal speech, gait not observed. PSYCH: Normal mood, normal affect. SKIN: Large, irregular wound over right tibia with slough Active Medications Generic Name Dose Route Start Last Admin Trade Name Freq PRN Reason Stop Dose Admin Acetaminophen 650 mg 05/09/17 22:14 05/11/17 18:15 Tylenol - PO 650 mg Q6H PRN Administration PAIN Amlodipine Besylate 5 mg 05/10/17 10:00 05/11/17 13:53 Norvasc - PO 5 mg DAILY JODI Administration Atorvastatin Calcium 20 mg 05/10/17 22:00 05/11/17 22:12 Lipitor - PO 20 mg HS JODI Administration Carvedilol 3.125 mg 05/10/17 10:00 05/11/17 22:12 Coreg - PO 3.125 mg BID JODI Administration Collagenase 1 applic 05/11/17 10:05/11/17 11:00 Santyl - TP 1 applic DAILY [facility]I Administration Heparin Sodium (Porcine) 5,000 unit 05/10/17 10:00 05/11/17 22:13 Heparin - SQ 5,000 unit BID JODI Administration Hydrochlorothiazide 25 mg 05/10/17 10:00 05/11/17 09:18 Hctz - PO 25 mg DAILY [facility]I Administration Ampicillin Sodium/Sulbactam 100 mls @ 200 mls/hr 05/10/17 18:00 05/12/17 02:22 Sodium 3 gm/ Sodium Chloride IVPB 200 mls/hr Q8H-IV J[facility]I Administration Levothyroxine Sodium 25 mcg 05/10/17 07:00 05/12/17 06:57 Synthroid - PO 25 mcg DAILY@0700 JODI Administration Losartan Potassium 50 mg 05/10/17 10:00 05/11/17 09:19 Cozaar - PO 50 mg DAILY [facility]I Administration Oxycodone HCl 10 mg 05/09/17 22:14 05/11/17 18:16 Roxicodone - PO 10 mg Q6H PRN Administration PAIN LEVEL 6-10 Ranitidine HCl 150 mg 05/10/17 10:00 05/11/17 09:18 Zantac - PO 150 mg DAILY [facility]I Administration ASSESSMENT/PLAN 87 year old female with non-healing right tibial wound s/p fall on 02/14; initially given 50+ sutures and antibiotics per her report. Non-healing RLE infected wound -slough in wound -continue unasyn (day #3) -daily collagenase; wrap wound with mariah compression -should follow up in wound care clinic on discharge Hypertension CAD -BP presently well-controlled -Continue home Norvasc/Cozaar/HCTZ/Coreg Hyperlipidemia -Continue Atorvastatin Hypothyroidism -Continue Synthroid F/E/N -Sodium-controlled diet DISPO: Requires inpatient services. Visit type - Emergency Visit Emergency Visit: Yes ED Registration Date: 05/09/17 Care time: The patient presented to the Emergency Department on the above date and was hospitalized for further evaluation of their emergent condition. - New Patient This patient is new to me today: No - Critical Care Critical Care patient: No
[2017-05-12] MEDS ORDERED: PT OWN MED DRAWER 7, Y5N ONE ×2 (09:23→17:56)
[2017-05-12] MEDS: RANITIDINE HCL 150 MG TABLET (FP) PO SCH (09:35)
[2017-05-12] MEDS: LOSARTAN POTASSIUM 50 MG TABLET (FP) PO SCH (09:35)
[2017-05-12] MEDS: CARVEDILOL 3.125 MG TABLET (FP) PO SCH ×2 (09:35→22:37)
[2017-05-12] MEDS: amLODIPine BESYLATE 5 MG TABLET (FP) PO SCH (09:35)
[2017-05-12] MEDS: HYDROCHLOROTHIAZIDE 25 MG TABLET (FP) PO SCH (09:35)
[2017-05-12] MEDS: HEPARIN NA (PORCINE) 5,000 UNITS/ML 1ML VIAL SQ SCH ×2 (09:36→22:37)
--- NOTE | 2017-05-12 15:33 | PN ---
Progress Note, Physician History of Present Illness: doing well no issues - Current Medication List Current Medications: Active Medications Acetaminophen (Tylenol -) 650 mg PO Q6H PRN PRN Reason: PAIN Last Admin: 05/11/17 18:15 Dose: 650 mg Amlodipine Besylate (Norvasc -) 5 mg PO DAILY [facility] Last Admin: 05/12/17 09:35 Dose: 5 mg Atorvastatin Calcium (Lipitor -) 20 mg PO HS [facility] Last Admin: 05/11/17 22:12 Dose: 20 mg Carvedilol (Coreg -) 3.125 mg PO BID [facility] Last Admin: 05/12/17 09:35 Dose: 3.125 mg Collagenase (Santyl -) 1 applic TP DAILY [facility] Last Admin: 05/11/17 11:00 Dose: 1 applic Heparin Sodium (Porcine) (Heparin -) 5,000 unit SQ BID [facility] Last Admin: 05/12/17 09:36 Dose: 5,000 unit Hydrochlorothiazide (Hctz -) 25 mg PO DAILY [facility] Last Admin: 05/12/17 09:35 Dose: 25 mg Ampicillin Sodium/Sulbactam (Sodium 3 gm/ Sodium Chloride) 100 mls @ 200 mls/ hr IVPB Q8H-IV [facility] Last Admin: 05/12/17 09:36 Dose: 200 mls/hr Levothyroxine Sodium (Synthroid -) 25 mcg PO DAILY@0700 [facility] Last Admin: 05/12/17 06:57 Dose: 25 mcg Losartan Potassium (Cozaar -) 50 mg PO DAILY [facility] Last Admin: 05/12/17 09:35 Dose: 50 mg Oxycodone HCl (Roxicodone -) 10 mg PO Q6H PRN PRN Reason: PAIN LEVEL 6-10 Last Admin: 05/11/17 18:16 Dose: 10 mg Ranitidine HCl (Zantac -) 150 mg PO DAILY [facility] Last Admin: 05/12/17 09:35 Dose: 150 mg - Objective Vital Signs: Vital Signs Temperature 98 F 05/12/17 14:36 Pulse Rate 56 L 05/12/17 14:36 Respiratory Rate 56 H 05/12/17 14:36 Blood Pressure 115/57 05/12/17 14:36 O2 Sat by Pulse Oximetry (%) 95 05/12/17 11:00 Constitutional: Yes: No Distress, Calm Cardiovascular: Yes: Regular Rate and Rhythm Respiratory: Yes: Regular, CTA Bilaterally Gastrointestinal: Yes: Normal Bowel Sounds, Soft Musculoskeletal: Yes: WNL Extremities: Yes: Other Wound/Incision: Yes: Dressing Dry and Intact Neurological: Yes: Alert, Oriented Psychiatric: Yes: Alert Labs: CBC, BMP 05/11/17 05:45 05/11/17 05:45 Assessment/Plan 1. Cellulitis/Abscess of R- lower extremity 2. HTN 3. HLD 4. Hypothyroid 5. Angina plan will change to oral tomorrow rest as per primary team
[2017-05-12] MEDS: COLLAGENASE CLOSTRIDIUM HIST. 30 GRAMS TUBE TP SCH (17:00)
[2017-05-12] MEDS ORDERED: DOCUSATE SODIUM 100 MG CAPSULE (FP) PO SCH (22:00)
[2017-05-12] MEDS: ATORVASTATIN CA 20 MG TABLET (FP) PO SCH (22:37)
[2017-05-12] MEDS: POLYETHYLENE GLYCOL 3350 119 GM BTL PO SCH (22:37)
[2017-05-13] MEDS: AMPICILLIN NA/SULBACTAM NA 3 GM in SODIUM CHLORIDE 100 ML IVPB SCH ×2 (01:41→09:37)
[2017-05-13] MEDS: LEVOTHYROXINE NA 25 MCG TABLET (FP) PO SCH (06:55)
[2017-05-13] MEDS ORDERED: PT OWN MED DRAWER 7, Y5N ONE (09:23)
[2017-05-13] MEDS: RANITIDINE HCL 150 MG TABLET (FP) PO SCH (09:40)
[2017-05-13] MEDS: amLODIPine BESYLATE 5 MG TABLET (FP) PO SCH (09:40)
[2017-05-13] MEDS: LOSARTAN POTASSIUM 50 MG TABLET (FP) PO SCH (09:41)
[2017-05-13] MEDS: HYDROCHLOROTHIAZIDE 25 MG TABLET (FP) PO SCH (09:41)
[2017-05-13] MEDS: CARVEDILOL 3.125 MG TABLET (FP) PO SCH (09:41)
[2017-05-13] MEDS: HEPARIN NA (PORCINE) 5,000 UNITS/ML 1ML VIAL SQ SCH (09:41)
[2017-05-13] MEDS: POLYETHYLENE GLYCOL 3350 119 GM BTL PO SCH (09:45)
--- NOTE | 2017-05-13 13:16 | PN ---
Progress Note, Physician History of Present Illness: stable doing well no new issues - Current Medication List Current Medications: Active Medications Acetaminophen (Tylenol -) 650 mg PO Q6H PRN PRN Reason: PAIN Last Admin: 05/11/17 18:15 Dose: 650 mg Amlodipine Besylate (Norvasc -) 5 mg PO DAILY [facility] Last Admin: 05/13/17 09:40 Dose: 5 mg Amoxicillin/Clavulanate Potassium (Augmentin - 500mg Tablet) 1 tab PO BID@0800, 1730 [facility] Atorvastatin Calcium (Lipitor -) [address] [facility] Last Admin: 05/12/17 22:37 Dose: 20 mg Carvedilol (Coreg -) 3.125 mg PO BID [facility] Last Admin: 05/13/17 09:41 Dose: 3.125 mg Collagenase (Santyl -) 1 applic TP DAILY [facility] Last Admin: 05/12/17 17:00 Dose: 1 applic Docusate Sodium (Colace -) [address] [facility] Last Admin: 05/12/17 22:37 Dose: 300 mg Heparin Sodium (Porcine) (Heparin -) 5,000 unit SQ BID [facility] Last Admin: 05/13/17 09:41 Dose: 5,000 unit Hydrochlorothiazide (Hctz -) 25 mg PO DAILY [facility] Last Admin: 05/13/17 09:41 Dose: 25 mg Levothyroxine Sodium (Synthroid -) 25 mcg PO DAILY@0700 [facility] Last Admin: 05/13/17 06:55 Dose: 25 mcg Losartan Potassium (Cozaar -) 50 mg PO DAILY [facility] Last Admin: 05/13/17 09:41 Dose: 50 mg Oxycodone HCl (Roxicodone -) 10 mg PO Q6H PRN PRN Reason: PAIN LEVEL 6-10 Last Admin: 05/11/17 18:16 Dose: 10 mg Polyethylene Glycol (Miralax (For Daily Use) -) 17 gm PO BID [facility] Last Admin: 05/13/17 09:45 Dose: 17 grams Ranitidine HCl (Zantac -) 150 mg PO DAILY [facility] Last Admin: 05/13/17 09:40 Dose: 150 mg - Objective Vital Signs: Vital Signs Temperature 98.3 F 05/13/17 06:00 Pulse Rate 64 05/13/17 10:00 Respiratory Rate 18 05/13/17 10:00 Blood Pressure 140/74 05/13/17 10:00 O2 Sat by Pulse Oximetry (%) 95 05/12/17 11:00 Constitutional: Yes: No Distress, Calm Cardiovascular: Yes: Regular Rate and Rhythm Respiratory: Yes: Regular, CTA Bilaterally Gastrointestinal: Yes: Normal Bowel Sounds, Soft Musculoskeletal: Yes: WNL Extremities: Yes: Other Wound/Incision: Yes: Dressing Dry and Intact Neurological: Yes: Alert, Oriented Psychiatric: Yes: Alert, Oriented Labs: CBC, BMP 05/11/17 05:45 05/11/17 05:45 Assessment/Plan 1. Cellulitis/Abscess of R- lower extremity 2. HTN 3. HLD 4. Hypothyroid 5. Angina plan changed to oral rest ct current mgmt
[2017-05-13] MEDS: COLLAGENASE CLOSTRIDIUM HIST. 30 GRAMS TUBE TP SCH (14:09)
[2017-05-13 14:57] VITALS: BP 130/64; PULSE 56; TEMP 98.2
--- NOTE | 2017-05-13 15:10 | DS ---
Physical Exam: SUBJECTIVE: Patient seen and examined. She feels well, she is walking w/o issue and wants to go home. she lives with her daughter OBJECTIVE: Vital Signs Period Temp Pulse Resp BP Sys/Hall Pulse Ox Last 24 Hr 98.2 F-98.3 F 56-64 18-20 130-144/55-74 94 PE Neuro: alert, awake, cn 2-12intact Pulm: CTAB CV: s1 s2 rrr Abd: s nt nd +bs Ext: warm, no le edema Skin: RLE wound lateral wetzel slough, non draining, granulation, pink HOSPITAL COURSE: Date of Admission:05/09/17 Date of Discharge: 05/13/17 Minutes to complete discharge: 36 Discharge Summary Reason For Visit: CELLULITIS Current Active Problems Cardiac angina (Acute) Cellulitis (Acute) DVT prophylaxis (Acute) Right leg swelling (Acute) Hospital Course: Initial Hospital Course: Briefly, this 87 year old female presented to the ED with a RLE wound with increased swelling, erythema, and yellow drainage. The wound resulted from a fall back in January resulting in +50 sutures. Patient reported being on ABX for 1 month, but she could not recall the name and the wound never healed. Patient reports seeing her PMD and was sent in for admission for Cellulitis. Subsequent Hospital Course/Progress Note/Discharge Summary by a/p: Assessment: 87 year old female with CAD, HTN, HLD, hypothyroidism, admitted with non-healing right tibial wound s/p fall on 02/14; initially given 50+ sutures and antibiotics per her report. Plan: 1. Non-healing RLE wound, cellulitis - MRI negative for osteo - Unasyn 3 days - Home augmentin 500mg BID x5 days - Daily collagenase; wrap wound with mariah compression - Wound care follow up on DC - VNS 2. Hypertension/ CAD - BP controlled - Continue home Norvasc 5mg/Cozaar 25mg qDay/HCTZ 25mg/Coreg 3.125 BID 3. Hyperlipidemia - Continue Atorvastatin 4. Hypothyroidism -Continue Synthroid 25mcg Plan: - Home with above meds - VNS and wound care follow up, referral enclosed Condition: Stable - Instructions Diet, Activity, Other Instructions: Please return to the ED for any new, persistent, or worsening symptoms. Follow up with your PCP in 1 week Make an appt with wound care center for next week and follow up regularly Complete antibiotics as directed Resume home medications as directed Referrals: Julianne Angeles [Primary Care Provider] - Leif Issa MD [Staff Physician] - Disposition: VNS/HOME HEALTH CARE - Home Medications Comprehensive Discharge Medication List: Ambulatory Orders Amlodipine Besylate [Norvasc -] 5 mg PO DAILY tablet 05/13/17 Amox-Tr/K Cl [Augmentin - 500Mg Tablet] 1 tab PO BID #10 tab 05/13/17 Atorvastatin Ca [Lipitor] 20 mg PO HS tablet 05/13/17 Carvedilol [Coreg -] 3.125 mg PO BID tablet 05/13/17 Collagenase Clostridium Hist. [Santyl -] 1 applic TP DAILY #1 tube 05/13/17 Hydrochlorothiazide 25 mg PO DAILY #30 tablet 05/13/17 Lactobacillus Acidophilus [Bacid -] 1 each PO DAILY #7 capsule 05/13/17 Levothyroxine [Synthroid -] 25 mcg PO DAILY@0700 tablet 05/13/17 Losartan Potassium [Cozaar -] 50 mg PO DAILY tablet 05/13/17 Ranitidine [Zantac -] 150 mg PO DAILY tablet 05/13/17 This patient is new to me today: Yes Date on this admission: 05/13/17 Emergency Visit: Yes ED Registration Date: 05/09/17 Care time: The patient presented to the Emergency Department on the above date and was hospitalized for further evaluation of their emergent condition. Critical Care patient: No - Discharge Referral Referred to [facility] Yes Physician Referral: Leif Issa DO ([facility])
[2017-05-13] MEDS ORDERED: AMOX TR/POT CLAV 500MG/125MG TABLETS (FP) PO SCH (17:30)
== END 2017-05-13 18:13 | disposition home health service (06) | DRG 721 ==
LOC: JER 14:45 → JERBED 20:19 → J5S 05-10 00:13
PROVIDERS: ADMIT Internal Medicine; ATTEND Nurse Practitioner Acute Care
DX: T81.4XXA Infection following a procedure, initial encounter (principal); Y83.8 Other surgical procedures as the cause of abnormal reaction of the patient, or of later complication, without mention of misadventure at the time of the procedure; L03.115 Cellulitis of right lower limb; I10 Essential (primary) hypertension; E78.5 Hyperlipidemia, unspecified; E03.9 Hypothyroidism, unspecified; L02.415 Cutaneous abscess of right lower limb; K21.9 Gastro-esophageal reflux disease without esophagitis; M19.90 Unspecified osteoarthritis, unspecified site; G89.29 Other chronic pain; M54.9 Dorsalgia, unspecified; K59.00 Constipation, unspecified; I25.119 Atherosclerotic heart disease of native coronary artery with unspecified angina pectoris; Z98.61 Coronary angioplasty status
CPT/HCPCS: 36415; 71020-TC; 73590-TC-RT; 73718-TC; 80048; 80053; 85025; 85651; 86140; 87070; 87205; 90670; 93005; 93010; 93971-TC; 99284-25; J1644

== ENCOUNTER 2017-11-28 06:15 | Day surgery (SDC) | payer OTHER ==
[2017-11-27 09:15] VITALS: BMI 33.7
[~2017-11-28 06:15] MED LIST: BUPIVACAINE HCL/PF 0.75% 10 ML VIAL RB ONE; LIDOCAINE HCL 1% PRESERVATIVE FREE - 30ML VIAL IO ONE; LIDOCAINE HCL/PF 2% SDV 5ML VIAL INF ONE; TETRACAINE 0.5% OPHTH SOLN 2 ML BOTTLE TP ONE; TOBRAMYCIN/DEXAMETHASONE OPHTH. OINTMENT 1 TUBE TP ONE; TROPICAMIDE 1% OPHTH SOLN 15 ML BOTTLE OP SCH
[2017-11-28] MEDS ORDERED: CYCLOPENTOLATE HCL 1% OPHTH SOLN 2 ML BOTTLE ONE (06:34)
[2017-11-28] MEDS ORDERED: PHENYLEPHRINE 2.5% OPHTH SOLN 15 ML BOTTLE ONE (06:34)
[2017-11-28] MEDS ORDERED: MOXIFLOXACIN HCL 0.5% OPHTHALMIC 3 ML BOTTLE ONE (06:34)
[2017-11-28] MEDS: PHENYLEPHRINE 2.5% OPHTH SOLN 15 ML BOTTLE OP SCH ×3 (06:45→07:10)
[2017-11-28] MEDS: TROPICAMIDE 1% OPHTH SOLN 15 ML BOTTLE ONE ×3 (06:45→07:10)
[2017-11-28] MEDS: MOXIFLOXACIN HCL 0.5% OPHTHALMIC 3 ML BOTTLE OP SCH ×3 (06:45→07:10)
[2017-11-28] MEDS: CYCLOPENTOLATE HCL 1% OPHTH SOLN 2 ML BOTTLE OP SCH ×3 (06:45→07:10)
[2017-11-28 07:05] VITALS: TEMP 98
[2017-11-28] MEDS ORDERED: EPINEPHrine/PF 1 MG/1 ML (1:1,000) AMPULE ONE (07:17)
[2017-11-28] MEDS ORDERED: TOBRAMYCIN/DEXAMETHASONE OPHTH. OINTMENT 1 TUBE ONE (07:17)
[2017-11-28] MEDS ORDERED: ACETYLCHOLINE 1:100 INTRA-OCUL 20 MG/2 ML KIT ONE (07:18)
[2017-11-28] MEDS ORDERED: BUPIVACAINE HCL/PF 0.75% 10 ML VIAL ONE (07:18)
[2017-11-28] MEDS ORDERED: LIDOCAINE HCL/PF 1% SDV 5ML VIAL ONE ×2 (07:18→07:21)
[2017-11-28] MEDS ORDERED: LIDOCAINE HCL/PF 2% SDV 5ML VIAL ONE (07:18)
[2017-11-28] MEDS ORDERED: TETRACAINE 0.5% OPHTH SOLN 2 ML BOTTLE ONE (07:19)
[2017-11-28] MEDS ORDERED: POVIDONE-IODINE 5% OPHTHALMIC PREP 30 ML SOLUTION ONE (07:19)
[2017-11-28] MEDS ORDERED: PROPOFOL 20 ML ONE ×3 (07:42)
[2017-11-28] MEDS ORDERED: SUCCINYLCHOLINE CHLORIDE 200 MG/10 ML VIAL ONE (07:42)
[2017-11-28] MEDS ORDERED: ePHEDrine SULFATE 50 MG/1 ML AMPULE ONE (07:42)
[2017-11-28] MEDS ORDERED: TETRACAINE 0.5% OPHTH SOLN 2 ML BOTTLE TP ONE (08:09)
[2017-11-28] MEDS ORDERED: BUPIVACAINE HCL/PF 0.75% 10 ML VIAL RB ONE (08:14)
[2017-11-28] MEDS ORDERED: LIDOCAINE HCL/PF 2% SDV 5ML VIAL INF ONE (08:14)
[2017-11-28] MEDS ORDERED: LIDOCAINE HCL 1% PRESERVATIVE FREE - 30ML VIAL IO ONE (08:23)
[2017-11-28] MEDS ORDERED: ONDANSETRON 4 MG/2 ML VIAL IVPUSH PRN (08:44)
[2017-11-28] MEDS ORDERED: ACETAMINOPHEN 325 MG TABLET (FP) PO PRN (08:44)
[2017-11-28] MEDS ORDERED: LACTATED RINGERS SOLUTION 1,000 ML IV SCH (08:45)
[2017-11-28] MEDS ORDERED: TOBRAMYCIN/DEXAMETHASONE OPHTH. OINTMENT 1 TUBE TP ONE (08:52)
--- NOTE | 2017-11-28 09:15 | HP ---
History & Physical Update - History History: No Change - Physical Physical: No Change - Assessment Assessment: No Change - Plan Plan: No Change
--- NOTE | 2017-11-28 11:20 | OP ---
DATE OF OPERATION: 11/28/2017 SURGEON: Maged Parnell MD PREOPERATIVE DIAGNOSIS: Cataract, left eye. OPERATION: Phacoemulsification and intraocular lens implantation, left eye. POSTOPERATIVE DIAGNOSIS: Cataract, left eye. ANESTHESIA: Local with intravenous sedation. COMPLICATIONS: None. BLOOD LOSS: None. SPECIMEN: None. BRIEF HISTORY: The patient is an 87-year-old woman with a past medical history of hypertension who presented with decreased vision in the left eye down to 20/50- 2 due to a 3+ nuclear sclerotic lens. After the risks, benefits, and alternatives to cataract surgery were discussed with the patient, she consented to surgery for the left eye. DESCRIPTION OF PROCEDURE: The patient was brought to the operating room and administered retrobulbar block after receiving intravenous sedation. She was then prepped and draped in the usual sterile fashion, and an eyelid speculum was inserted in the left eye. A paracentesis was made, and the anterior chamber was inflated with nonpreserved lidocaine. This was followed by injection of Viscoat. A groove was made in the supratemporal clear cornea, which was tunneled forward with a crescent blade. The anterior chamber was entered with a 2.75 keratome. The cystotome was used to make an incision in the center of the capsule, and a continuous curvilinear capsulorrhexis was created. At this point, it was noted that the pupil only dilated to about 4 to 4.5 mm, and it was determined to place iris hooks around the pupil in order to enlarge and stabilize it. Five iris hooks were placed without incident. The lens was then hydrodissected until it was found to rotate freely within the capsular bag. Phacoemulsification was then used to remove the lens in its entirety. Irrigation and aspiration was used to remove residual cortical material. The anterior chamber and capsular bag were reinflated with Provisc, and a 22.5 diopter [id number] AcrySof intraocular lens was injected into the capsular bag using [place] injector. The lens was dialed into place using a Sinskey hook. Irrigation and aspiration was used to remove residual viscoelastic. The wound was stromally hydrated until it was found to be watertight. The previously placed iris hooks were removed without incident. The wound was rechecked and found to be watertight, and the eye was at an appropriate pressure. The eyelid speculum was removed from the eye, and Tobradex ointment and a patch and shield were placed over the left eye. The patient was transferred to the recovery room in stable condition and will follow up tomorrow. MAGED PARNELL M.D. [id number] MTDD
[2017-11-28 11:35] VITALS: BP 145/73; PULSE 58
== END 2017-11-28 10:00 | disposition home or self-care (01) ==
LOC: JASU-SURG 06:15
PROVIDERS: ATTEND Ophthalmology
PROC: 08RK3JZ Replacement of Left Lens with Synthetic Substitute, Percutaneous Approach (ICD-10-PCS; principal; 2017-11-28 08:00)
DX: H25.012 Cortical age-related cataract, left eye (principal)

== ENCOUNTER 2018-01-16 07:32 | Day surgery (SDC) | payer OTHER ==
[2018-01-15 09:16] VITALS: BMI 34.7
[~2018-01-16 07:32] MED LIST changes: -BUPIVACAINE HCL/PF 0.75% 10 ML VIAL RB ONE; -LIDOCAINE HCL 1% PRESERVATIVE FREE - 30ML VIAL IO ONE; -LIDOCAINE HCL/PF 2% SDV 5ML VIAL INF ONE; -TETRACAINE 0.5% OPHTH SOLN 2 ML BOTTLE TP ONE; -TROPICAMIDE 1% OPHTH SOLN 15 ML BOTTLE OP SCH
[2018-01-16] MEDS ORDERED: CYCLOPENTOLATE HCL 1% OPHTH SOLN 2 ML BOTTLE ONE (08:26)
[2018-01-16] MEDS ORDERED: MOXIFLOXACIN HCL 0.5% OPHTHALMIC 3 ML BOTTLE ONE (08:26)
[2018-01-16] MEDS ORDERED: TROPICAMIDE 0.5% OPHTHALMIC SOLN 15 ML BOTTLE ONE (08:26)
[2018-01-16] MEDS ORDERED: PHENYLEPHRINE 2.5% OPHTH SOLN 15 ML BOTTLE ONE (08:26)
[2018-01-16] MEDS: TROPICAMIDE 1% OPHTH SOLN 15 ML BOTTLE OP SCH ×3 (08:35→08:55)
[2018-01-16] MEDS: MOXIFLOXACIN HCL 0.5% OPHTHALMIC 3 ML BOTTLE OP SCH ×3 (08:35→08:55)
[2018-01-16] MEDS: PHENYLEPHRINE 2.5% OPHTH SOLN 15 ML BOTTLE OP SCH ×3 (08:35→08:55)
[2018-01-16] MEDS: CYCLOPENTOLATE HCL 1% OPHTH SOLN 2 ML BOTTLE OP SCH ×3 (08:35→08:55)
[2018-01-16] MEDS ORDERED: EPINEPHrine/PF 1 MG/1 ML (1:1,000) AMPULE ONE (09:54)
[2018-01-16] MEDS ORDERED: BUPIVACAINE HCL/PF 0.75% 10 ML VIAL ONE (09:54)
--- NOTE | 2018-01-16 10:03 | HP ---
History & Physical Update - History History: No Change (See medical clearance in chart by FATOU Talamantes) - Physical Physical: No Change (See medical clearance in chart by FATOU Talamantes) - Assessment Assessment: No Change (See medical clearance in chart by FATOU Talamantes) - Plan Plan: No Change (See medical clearance in chart by FATOU Talamantes)
[2018-01-16] MEDS ORDERED: MIDAZOLAM HCL 2 MG/2 ML SINGLE DOSE VIAL ONE (10:13)
[2018-01-16] MEDS ORDERED: PROPOFOL 20 ML ONE (10:17)
[2018-01-16] MEDS ORDERED: TETRACAINE 0.5% OPHTH SOLN 2 ML BOTTLE TP ONE (10:22)
[2018-01-16] MEDS ORDERED: LIDOCAINE HCL/PF 2% SDV 5ML VIAL PNB ONE (10:26)
[2018-01-16] MEDS ORDERED: BUPIVACAINE HCL/PF 0.75% 10 ML VIAL RB ONE (10:26)
[2018-01-16] MEDS ORDERED: LIDOCAINE HCL 1% PRESERVATIVE FREE - 30ML VIAL IO ONE (10:38)
[2018-01-16] MEDS ORDERED: ACETYLCHOLINE 1:100 INTRA-OCUL 20 MG/2 ML KIT IO ONE (11:05)
[2018-01-16] MEDS ORDERED: ACETYLCHOLINE 1:100 INTRA-OCUL 20 MG/2 ML KIT ONE (11:07)
[2018-01-16] MEDS ORDERED: TOBRAMYCIN/DEXAMETHASONE OPHTH. OINTMENT 1 TUBE TP ONE (11:14)
[2018-01-16 13:08] VITALS: BP 122/70; PULSE 70; TEMP 98
--- NOTE | 2018-01-16 14:33 | OP ---
DATE OF OPERATION: 01/16/2018 SURGEON: ARIEL PARNELL M.D. PREOPERATIVE DIAGNOSIS: Cataract, right eye. POSTOPERATIVE DIAGNOSIS: Cataract, right eye. OPERATION: Phacoemulsification intraocular lens implantation, right eye. ANESTHESIA: Local with intravenous sedation. COMPLICATIONS: None. BLOOD LOSS: None. SPECIMEN: None. BRIEF HISTORY: The patient is an 87-year-old woman with a past medical history of hypertension who presents with decreased vision in the right eye down to 20/50 minus due to a 3+ nuclear sclerotic lens with vacuoles. After the risks, benefits and alternatives to cataract surgery were discussed with the patient, she consented to surgery for the right eye. DESCRIPTION OF PROCEDURE: Patient was brought to the operating room and administered retrobulbar block after receiving intravenous sedation. She was then prepped and draped in the usual sterile fashion. An eyelid speculum was inserted in the right eye. A paracentesis was made and the anterior chamber was inflated with non-preserved lidocaine. This was followed by injection of Viscoat. A groove was made in the temporal clear cornea, which was tunneled forward with the crescent blade. The anterior chamber was entered with the 2.75 keratome. The cystotome was used to make an incision in the center of the capsule and a continuous curvilinear capsulorrhexis was created. Hydrodissection was started; however, there was significant constriction of the pupil and iris prolapse. Four iris hooks were placed in order to enlarge and stabilize the pupil. Hydrodissection was continued until the lens was found to rotate freely within the capsular bag. Phacoemulsification was then used to remove the lens in its entirety. Irrigation and aspiration was used to remove residual cortical material. The anterior chamber and capsular bag were reinflated with Provisc and a 23.0 diopter [id number] AcrySof intraocular lens was injected into the capsular bag using the [place] injector. The lens was dialed into place using the Sinskey hook. Irrigation and aspiration was used to remove residual Viscoelastic. The wound was stromally hydrated; however, there was noted to be significant iris prolapse. Miochol was injected into the pupil and was found to constrict round. However, there were still strands of iris at the wound. One 10-0 nylon suture was placed at the wound and Miochol was reinjected. The pupil was found to constrict round with no iris prolapsing out of the wound. The wound was found to be water tight and the eye was at appropriate pressure. The eyelid speculum was removed from the eye and Tobradex ointment and a patch and shield were placed over the right eye. The patient was transferred to the recovery room in stable condition and will follow up tomorrow. Azeb [id number] MTDD
== END 2018-01-16 11:30 | disposition home or self-care (01) ==
LOC: JASU-SURG 07:32
PROVIDERS: ATTEND Ophthalmology
PROC: 08RJ3JZ Replacement of Right Lens with Synthetic Substitute, Percutaneous Approach (ICD-10-PCS; principal; 2018-01-16 10:00)
DX: H25.11 Age-related nuclear cataract, right eye (principal); H21.89 Other specified disorders of iris and ciliary body

== ENCOUNTER 2020-05-28 13:10 | Emergency (ER) | payer OTHER ==
[2020-05-28 13:27] VITALS: BMI 29.2
--- NOTE | 2020-05-28 13:27 | PDOC ---
Rapid Medical Evaluation Time Seen by Provider: 05/28/20 13:20 Medical Evaluation: Allergies Allergy/AdvReac Type Severity Reaction Status Date / Time No Known Allergies Allergy Verified 11/28/17 07:12 05/28/20 13:20 I have preformed a brief in person evaluation of the patient 89 year old female pmhx HTN, hx of AL, Hypothyroid, RA, Osteoporosis presenting with CP x 3 days with associated SOB and exertion. PE: RRR CTA ACS R/O CXR EKG in triage shows RBB Pt to precede to ED for further management and care
--- NOTE | 2020-05-28 15:00 | PDOC ---
History of Present Illness - General Chief Complaint: Chest Pain Stated Complaint: CHEST PAIN Time Seen by Provider: 05/28/20 13:20 - History of Present Illness Initial Comments: Pt is an 89yo F with PMH HTN, hypothyroid, RA, osteoarthritis, and hx of TIA, who presents with CP. Pts granddaughter is in the room to assist with tr anslating since patient is azeri speaking. Reports 3 day history of constant CP that is substernal, pleuritic, 7/10, a/w exertional SOB, weakness, and headache. States that she took a nitroglycerin today that has improved her symptoms, but denies any other relieving factors. States that pain is worse with eating. Reports loss of appetite. Reports chronic pain in shoulders, lower back, and legsDenies f/c, n/v, palpitations, lightheadedness. Denies sick contacts, recent travel, immobilization, history of cancer. PCP: [place] Client Manager [employer]: Jeniffer PMH: see HPI PSHx: none reported All: NKDA Social: denies tobacco use, etoh use, and illicit drug use Past History - Medical History Allergies/Adverse Reactions: Allergies Allergy/AdvReac Type Severity Reaction Status Date / Time No Known Allergies Allergy Verified 05/28/20 13:25 Home Medications: Ambulatory Orders Amlodipine Besylate [Norvasc -] 5 mg PO DAILY tablet 05/13/17 Carvedilol [Coreg -] 3.125 mg PO BID tablet 05/13/17 Hydrochlorothiazide 25 mg PO DAILY #30 tablet 05/13/17 Lactobacillus Acidophilus [Bacid -] 1 each PO DAILY #7 capsule 05/13/17 Levothyroxine [Synthroid -] 25 mcg PO DAILY@0700 tablet 05/13/17 Alendronate Na [Fosamax (Weekly)] 70 mg PO Q7D 01/16/18 Meloxicam [Mobic] 15 mg PO DAILY #30 tablet 10/21/19 Anemia: No Asthma: Yes (DENIES) Cancer: No Cardiac Disorders: Yes (ANGINA CAD) CVA: Yes (06/2019) COPD: No CHF: No Dementia: No Diabetes: No GI Disorders: No Disorders: No HTN: Yes (DENIES) Hypercholesterolemia: Yes Liver Disease: No Seizures: No Thyroid Disease: Yes - Surgical History Appendectomy: Yes Cardiac Surgery: Yes (CATH, NEG) Cholecystectomy: No Orthopedic Surgery: No - Psycho-Social/Smoking History Smoking Status: Yes Smoking History: Never smoked Have you smoked in the past 12 months: No Number of Cigarettes Smoked Daily: 40 If you are a former smoker, when did you quit?: 40 yrs - Substance Abuse Hx (Audit-C & DAST Scrn) How often the patient has a drink containing alcohol: Never Score: In Men: 4 or > Positive; In Women: 3 or > Positive: 0 Screen Result (Pos requires Nsg. Audit-10AR): Negative Review of Systems - Review of Systems Comments:: CONSTITUTIONAL:reports generalized weakness, loss of appetite; denies fever, chills, diaphoresis, malaise HEENT:denies rhinorrhea, nasal congestion, sore throat, ear pain, eye pain, visual Changes CARDIOVASCULAR:reports chest pain, denies palpitations, lightheadedness RESPIRATORY:reports cough, shortness of breath, dyspnea with exertion; denies orthopnea, wheezing, hemoptysis GASTROINTESTINAL: denies abdominal pain, nausea, vomiting, diarrhea, constipation, melena, hematochezia GENITOURINARY:denies dysuria, frequency, urgency, hematuria, flank pain, genital pain MUSCULOSKELETAL:denies myalgia, arthralgia, joint swelling, neck pain, back pain HEMATOLOGIC/IMMUNOLOGIC:denies easy bleeding, easy bruising ENDOCRINE: denies unexplained weight gain, unexplained weight loss NEUROLOGIC:reports dizziness, headaches, denies loss of consciousness, focal weakness or paresthesias, unsteady gait, mental status changes, bladder or bowel incontinence *Physical Exam - Vital Signs Last Vital Signs Temp Pulse Resp BP Pulse Ox 74 18 142/49 L 97 05/28/20 13:25 05/28/20 13:25 05/28/20 13:25 05/28/20 13:25 - Physical Exam General: awake, alert, oriented, in no acute distress, well developed, well nourished Head: normocephalic, atraumatic Eyes: PERRL, EOMI, anicteric sclera, conjunctiva clear ENT: hearing grossly normal, oropharynx clear without exudates. No nasal congestion Moist mucous membranes Neck: supple, normal ROM, no LAD, JVD or masses Lung: equal breath sounds b/l, CTA b/l, no crackles, wheezes; no distress, speaks full sentences Heart: RRR, normal S1, S2, no murmurs, rubs, gallops Abdomen: soft, non tender, normoactive bowel sounds, no guarding, rebound, mas ses Extremities: no edema, no erythema or tenderness, DP/PT pulses 2+ and symmetric, no clubbing, cyanosis Neuro: CN2-12 grossly intact, moves all extremities, normal speech, normal gait, sensation intact Skin: warm, dry, scar to RLE from prior fall ED Treatment Course - LABORATORY CBC & Chemistry Diagram: 05/28/20 14:50 05/28/20 14:50 Medical Decision Making - Medical Decision Making Pt is a 89yo with PMH HTN, hx of TIA, RA, osteoporosis who presents with chest pain Vital Signs Period Temp Pulse Resp BP Sys/Hall Pulse Ox Last 24 Hr 74 18 142/49 97-98 DDx: ACS, GERD, musculoskeletal pain, PE Plan: labs, EKG, CXR Laboratory Tests 05/28/20 05/28/20 05/28/20 14:50 14:50 14:50 WBC 5.8 RBC 4.27 Hgb 11.6 Hct 37.3 MCV 87.2 MCH 27.1 MCHC 31.1 L RDW 18.2 H Plt Count 204 MPV 8.8 Absolute Neuts (auto) 2.9 Neutrophils % 51.2 Lymphocytes % 37.9 Monocytes % 9.4 Eosinophils % 1.0 Basophils % 0.5 Nucleated RBC % 0 PT with INR 12.00 INR 1.02 PTT (Actin FS) 32.4 Sodium 140 Potassium 4.2 Chloride 101 Carbon Dioxide 32 Anion Gap 7 L BUN 8.0 Creatinine 0.8 Est GFR (CKD-EPI)AfAm 76.29 Est GFR (CKD-EPI)NonAf 65.82 Random Glucose 86 Calcium 8.1 L Total Bilirubin 0.4 AST 16 ALT 18 Alkaline Phosphatase 106 Creatine Kinase 80 Troponin I < 0.02 B-Natriuretic Peptide 106.9 Total Protein 6.7 Albumin 3.1 L EKG: HR 73ms, normal sinus rhythm, AZ 142 ms, QRS 92ms. QTc 471ms, left axis deviation, incomplete RBBB, T inversions in V1-V6 as seen in previous EKGs Spoke with Dr. Kelly, who recommended a repeat second troponin. If second troponin continues to be negative, he recommended that patient can be discharged home with outpatient follow up. Patient had normal echo and stress test last year. Signed out to Dr. Boo Disposition Discharge to home Discharge - Discharge Information Problems reviewed: Yes Clinical Impression/Diagnosis: Chest pain Qualifiers: Chest pain type: unspecified Qualified Code(s): R07.9 - Chest pain, unspecified Condition: Stable Disposition: HOME - Follow up/Referral Referrals: Emma Khoury MD [Primary Care Provider] - Lindsey Lorenzana MD [Nurse Practitioner] - Marco Mar MD [Staff Physician] - - Patient Discharge Instructions Patient Printed Discharge Instructions: DI for Chest Pain Additional Instructions: You came into the ER chest pain. In the ED, you were evaluated with physical exam and labs. Your results were normal. You do not appear to be an acute need for immediate hospitalization. You were advised to follow up with your international marketing specialist. Please call his office tomorrow to schedule an appointment. Come back to the ER immediately with any new or worsening concerns, such as exertional chest pain, changes in quality of pain, shortness of breath, headache, change in vision. Thank you for coming to the [facility] ER. We hope you feel better soon! Llegaste a la erik de emergencias con dolor en el pecho. En el servicio de urgencias, lo evaluaron con un examen fsico y laboratorios. Tus resultados fueron normales. No parece ser aram necesidad aguda de hospitalizacin inmediata. Se le aconsej que hiciera un seguimiento con song cardilogo. Por favor llame a song oficina maana para programar aram farzaneh. Regrese a la erik de emergencias de inmediato con cualquier inquietud nueva o que empeore, charla dolor torcico por esfuerzo, cambios en la calidad del dolor, dificultad para respirar, dolor de davis, cambios en la visin. Janette por venir a la erik de emergencias de [place]. Esperamos que te sientas mejor pronto! Print Language: AFGHAN - Post Discharge Activity
[2020-05-28 15:02] LABS: BASO % 0.5 % (0-2.0); HEMATOCRIT 37.3 % (32.4-45.2); HEMOGLOBIN 11.6 GM/dL (10.7-15.3); LYMPH % 37.9 % (8-40); MCH 27.1 pg (25.7-33.7); MCHC 31.1 g/dl (32.0-36.0); MEAN CELL VOLUME 87.2 fl (80-96); MEAN PLT VOLUME 8.8 fl (7.5-11.1); MONO % 9.4 % (3.8-10.2); NEUT % 51.2 % (42.8-82.8); PLATELET COUNT 204 K/MM3 (134-434); RBC 4.27 M/mm3 (3.60-5.2); RDW 18.2 % (11.6-15.6); WHITE BLOOD COUNT 5.8 K/mm3 (4.0-10.0)
[2020-05-28 15:10] LABS: INR 1.02 (0.83-1.09)
[2020-05-28 15:12] LABS: ACTIVATED PTT 32.4 SECONDS (25.2-36.5)
[2020-05-28 15:39] LABS: ALBUMIN 3.1 g/dl (3.4-5.0); ALK PHOS 106 U/L (45-117); ANION GAP 7 MMOL/L (8-16); BILIRUBIN,TOTAL 0.4 mg/dL (0.2-1); CALCIUM 8.1 mg/dL (8.5-10.1); CHLORIDE 101 mmol/L (98-107); CO2 32 mmol/L (21-32); CREATININE 0.8 mg/dL (0.55-1.3); N-TERMINAL BNP 106.9 pg/ml (5-450); POTASSIUM 4.2 mmol/L (3.5-5.1); SGOT/AST 16 U/L (15-37); SGPT/ALT 18 U/L (13-61); SODIUM 140 mmol/L (136-145); TOT PROT 6.7 g/dl (6.4-8.2)
[2020-05-28 15:43] LABS: GLUCOSE,RANDOM 86 mg/dL (74-106)
--- NOTE | 2020-05-28 17:09 | PDOC ---
Documentation entered by Tal Epps SCRIBE, acting as scribe for Alfonso Masterson MD. Alfonso Masterson MD: This documentation has been prepared by the scribe, Tal Epps SCRIBE, under my direction and personally reviewed by me in its entirety. I confirm that the documentation accurately reflects all work, treatment, procedures, and medical decision making performed by me. Attending Attestation - Resident Resident Name: Marcy Batista - ED Attending Attestation I have performed the following: I have examined & evaluated the patient, The case was reviewed & discussed with the resident, I agree w/resident's findings & plan, Exceptions are as noted - HPI HPI: 05/28/20 16:21 The patient is an 89 year old female with a significant past medical history of chronic pain in her shoulders, lower back, and legs, TIA, HTN, hypothyroid, RA, and osteoarthritis who presents to the ED with chest pain that began 3 days ago. Pt also endorses occasional sob. She describes this pain as 7/10 which is associated with headache and malaise/fatigue. She also noted decreased appetite secondary to worsened pain with eating. The patient denies fever, chills, nausea, vomiting and/or any GI symptoms. Denies any symptoms. Denies any other symptoms. Allergies: NKDA PCP: Dr. Khoury - Physicial Exam PE: 05/28/20 15:35 GENERAL: The patient is awake, alert, and fully oriented, Nontoxic - in no acute distress. HEAD: Normocephalic, atraumatic. EYES: extraocular movements intact, sclera anicteric, conjunctiva clear. ENT: Normal voice, Moist mucous membranes. NECK: Normal range of motion, supple without lymphadenopathy, JVD, or masses. LUNGS: Breath sounds equal, clear to auscultation bilaterally. No wheezes, no crackles, no rales. HEART: Regular rate and rhythm, normal S1 and S2 without murmur, rub or gallop. ABDOMEN: Soft, nontender, normoactive bowel sounds. No guarding, no rebound. No masses. EXTREMITIES: Normal range of motion, no edema. NEUROLOGICAL: No facial asymmetry, Normal speech, movnig all 4 ext spontaneously and symmetrically PSYCH: Normal mood, normal affect. SKIN: Warm, Dry, normal turgor, no rashes or lesions noted. - Medical Decision Making 05/28/20 19:15 1st trop neg had discussed possible observation for cp workup however pt requests to go home case dw dr. schaefer - will get 2nd trop and have close out patient fu with strict return precautions case signed out to evening team to fu with results and dispo pt Discharge - Discharge Information Problems reviewed: Yes Clinical Impression/Diagnosis: Chest pain Qualifiers: Chest pain type: unspecified Qualified Code(s): R07.9 - Chest pain, unspecified Condition: Stable Disposition: HOME - Follow up/Referral Referrals: Marco Mar MD [Staff Physician] - Emma Khoury MD [Primary Care Provider] - Lindsey Lorenzana MD [Nurse Practitioner] - - Patient Discharge Instructions Patient Printed Discharge Instructions: DI for Chest Pain Additional Instructions: You came into the ER chest pain. In the ED, you were evaluated with physical exam and labs. Your results were normal. You do not appear to be an acute need for immediate hospitalization. You were advised to follow up with your laboratory mechanic helper. Please call his office tomorrow to schedule an appointment. Come back to the ER immediately with any new or worsening concerns, such as exertional chest pain, changes in quality of pain, shortness of breath, headache, change in vision. Thank you for coming to the [facility] ER. We hope you feel better soon! Llegaste a la erik de emergencias con dolor en el [facility]. En el servicio de urgencias, lo evaluaron con un examen fsico y laboratorios. Tus resultados fueron normales. No parece ser aram necesidad aguda de hospitalizacin inmediata. Se le aconsej que hiciera un seguimiento con song cardilogo. Por favor llame a song oficina maana para programar aram farzaneh. Regrese a la erik de emergencias de inmediato con cualquier inquietud nueva o que empeore, charla dolor torcico por esfuerzo, cambios en la calidad del dolor, dificultad para respirar, dolor de davis, cambios en la visin. Janette por venir a la erik de emergencias de [place]. Esperamos que te sientas mejor pronto! Print Language: CUBAN - Post Discharge Activity
--- NOTE | 2020-05-28 19:27 | CON.CARD ---
Consult Consult Specialty:: cardiology Reason for Consultation:: chest pain - History Source History Provided By: Medical Record - Alcohol/Substance Use Hx Alcohol Use: No History of Substance Use: reports: None - Smoking History Smoking history: Never smoked Have you smoked in the past 12 months: No Aproximately how many cigarettes per day: 40 If you are a former smoker, when did you quit?: 40 yrs - Social History History of Recent Travel: Yes (traveled from [place]) Home Medications - Allergies Allergies/Adverse Reactions: Allergies Allergy/AdvReac Type Severity Reaction Status Date / Time No Known Allergies Allergy Verified 05/28/20 13:25 - Home Medications Home Medications: Ambulatory Orders Amlodipine Besylate [Norvasc -] 5 mg PO DAILY tablet 05/13/17 Carvedilol [Coreg -] 3.125 mg PO BID tablet 05/13/17 Hydrochlorothiazide 25 mg PO DAILY #30 tablet 05/13/17 Lactobacillus Acidophilus [Bacid -] 1 each PO DAILY #7 capsule 05/13/17 Levothyroxine [Synthroid -] 25 mcg PO DAILY@0700 tablet 05/13/17 Alendronate Na [Fosamax (Weekly)] 70 mg PO Q7D 01/16/18 Meloxicam [Mobic] 15 mg PO DAILY #30 tablet 10/21/19 Vital Signs: Vital Signs Temperature Pulse Rate 74 05/28/20 13:25 Respiratory Rate 18 05/28/20 13:25 Blood Pressure 142/49 L 05/28/20 13:25 O2 Sat by Pulse Oximetry (%) 98 05/28/20 13:35 - Other Data Labs, Other Data: CBC, BMP 05/28/20 14:50 05/28/20 14:50 INR, PTT INR 1.02 (0.83-1.09) 05/28/20 14:50 Troponin, BNP 05/28/20 14:50 Troponin I < 0.02 B-Natriuretic Peptide 106.9 Troponin, BNP 05/28/20 14:50 Troponin I < 0.02 B-Natriuretic Peptide 106.9 Assessment/Plan chest pain HTN Stress MIBI 08/27/2019: negative for ischemia ECHO 01/2019: normal LVEF Plan: Serial TNIs and EKGs; if negative, pt may be followed as an outpatient.
[2020-05-28 19:58] VITALS: BP 169/60; PULSE 55; TEMP 98.1
--- NOTE | 2020-05-28 20:41 | PDOC ---
*Physical Exam - Vital Signs Last Vital Signs Temp Pulse Resp BP Pulse Ox 98.1 F 55 L 17 169/60 96 05/28/20 19:35 05/28/20 19:35 05/28/20 19:35 05/28/20 19:35 05/28/20 19:35 ED Treatment Course - LABORATORY CBC & Chemistry Diagram: 05/28/20 14:50 05/28/20 14:50 - ADDITIONAL ORDERS Additional order review: Laboratory Results 05/28/20 05/28/20 05/28/20 18:27 14:50 14:50 PT with INR 12.00 INR 1.02 PTT (Actin FS) 32.4 Sodium 140 Potassium 4.2 Chloride 101 Carbon Dioxide 32 Anion Gap 7 L BUN 8.0 Creatinine 0.8 Est GFR (CKD-EPI)AfAm 76.29 Est GFR (CKD-EPI)NonAf 65.82 Random Glucose 86 Calcium 8.1 L Total Bilirubin 0.4 AST 16 ALT 18 Alkaline Phosphatase 106 Creatine Kinase 80 Troponin I < 0.02 < 0.02 B-Natriuretic Peptide 106.9 Total Protein 6.7 Albumin 3.1 L Lipase 05/28/20 14:30 PT with INR INR PTT (Actin FS) Sodium Potassium Chloride Carbon Dioxide Anion Gap BUN Creatinine Est GFR (CKD-EPI)AfAm Est GFR (CKD-EPI)NonAf Random Glucose Calcium Total Bilirubin AST ALT Alkaline Phosphatase Creatine Kinase Troponin I B-Natriuretic Peptide Total Protein Albumin Lipase 146 05/28/20 14:50 RBC 4.27 MCV 87.2 MCHC 31.1 L RDW 18.2 H MPV 8.8 Neutrophils % 51.2 Lymphocytes % 37.9 Monocytes % 9.4 Eosinophils % 1.0 Basophils % 0.5 Medical Decision Making - Medical Decision Making 05/28/20 20:39 05/28/20 20:38 Received sign-out from Dr. Marcy Batista. This is an 89 y/o female PMH of HTN and TIA presenting to due to chest pain which resolved with tylenol. First troponin was negative, waiting for second. Cardiology oked d/c with second negative trop. 05/28/20 20:39 Second trop negative. Will d/c patient with follow-up Discharge - Discharge Information Problems reviewed: Yes Clinical Impression/Diagnosis: Chest pain Qualifiers: Chest pain type: unspecified Qualified Code(s): R07.9 - Chest pain, unspecified Condition: Stable Disposition: HOME - Admission No - Follow up/Referral Referrals: Marco Mar MD [Staff Physician] - Emma Khoury MD [Primary Care Provider] - Lindsey Lorenzana MD [Nurse Practitioner] - - Patient Discharge Instructions Patient Printed Discharge Instructions: DI for Chest Pain Additional Instructions: You came into the ER chest pain. In the ED, you were evaluated with physical exam and labs. Your results were normal. You do not appear to be an acute need for immediate hospitalization. You were advised to follow up with your director maternal child. Please call his office tomorrow to schedule an appointment. Come back to the ER immediately with any new or worsening concerns, such as exertional chest pain, changes in quality of pain, shortness of breath, headache, change in vision. Thank you for coming to the [facility] ER. We hope you feel better soon! Llegaste a la erik de emergencias con dolor en el [facility]. En el servicio de urgencias, lo evaluaron con un examen fsico y laboratorios. Tus resultados fueron normales. No parece ser aram necesidad aguda de hospitalizacin inmediata. Se le aconsej que hiciera un seguimiento con song cardilogo. Por favor llame a song oficina maana para programar aram farzaneh. Regrese a la erik de emergencias de inmediato con cualquier inquietud nueva o que empeore, charla dolor torcico por esfuerzo, cambios en la calidad del dolor, dificultad para respirar, dolor de davis, cambios en la visin. Janette por venir a la erik de emergencias de [place]. Esperamos que te sientas mejor pronto! Print Language: CROATIAN - Post Discharge Activity
== END 2020-05-28 20:56 | disposition home or self-care (01) ==
LOC: JER 13:10
DX: R07.9 Chest pain, unspecified (principal)
CPT/HCPCS: 36415; 71046-TC-FY; 80053; 82550; 83690; 83880; 84484; 85025; 85610; 85730; 99285-25